=== PATIENT | female | born 1950 | race Caucasian/White ===

== ENCOUNTER 2017-10-28 10:09 | Emergency (ER) | payer MEDICARE, OTHER ==
[2017-10-28] MEDS ORDERED: Sodium Chloride 0.9% 10 ML Syringe FLUSH PRN (10:37)
[2017-10-28] MEDS ORDERED: Sodium Chloride 0.9% 1,000 ML IV ONE (10:37)
--- NOTE | 2017-10-28 10:55 | EDM.PDOC ---
ED HPI GENERAL MEDICAL PROBLEM - General Chief Complaint: Neuro Symptoms/Deficits Stated Complaint: DIFFICULTY SPEAKING Time Seen by Provider: 10/28/17 10:12 Source of Information: Reports: Family, RN, RN Notes Reviewed History Limitations: Reports: Altered Mental Status - History of Present Illness INITIAL COMMENTS - FREE TEXT/NARRATIVE: Patient is brought to the ED at [facility] via POV by son for expressive aphasia. Patient was last known well 2 days ago. Patient was out to her son's farm last Saturday to visit. The son did not see his mother until this AM when he checked on her. Patient has a known lung CA Primary with mets to the liver. She was started on Xarelto last August for Left DVT. She was transitioned to Coumadin last Saturday due to cost. Patient has been given a poor prognosis for her CA recovery per Oncology. - Related Data Allergies Allergy/AdvReac Type Severity Reaction Status Date / Time ciprofloxacin Allergy Edema Verified 10/28/17 11:40 quinine Allergy Dizziness Verified 10/28/17 11:40 codeine AdvReac Nausea and Verified 10/28/17 11:40 Vomiting Sulfa (Sulfonamide AdvReac Nausea Verified 10/28/17 11:40 Antibiotics) Home Meds: Home Meds Ascorbic Acid [Vitamin C] 1,000 mg PO DAILY 03/16/15 [History] Calcium Carbonate/Vitamin D3 [Calcium 600 + Vit D 200] 3 tab PO BEDTIME [History] Cholecalciferol (Vitamin D3) [Vitamin D3] 1,000 units PO DAILY 03/16/15 [History ] Multivitamin with Minerals [Multiple Vitamin] 1 tab PO DAILY 03/16/15 [History] Vitamin E 400 units PO DAILY 03/16/15 [History] Rivaroxaban [Xarelto] 15 - 20 mg PO ASDIRECTED 09/10/17 [History] Acetaminophen 2 tab PO TID 10/28/17 [History] Warfarin [Coumadin] 2.5 mg PO DAILY 10/28/17 [History] oxyCODONE 5 mg PO Q4HR PRN 10/28/17 [History] Past Medical History HEENT History: Reports: Cataract Cardiovascular History: Reports: High Cholesterol, PVD Respiratory History: Reports: Other (See Below) Other Respiratory History: emphysema Gastrointestinal History: Reports: Colon Polyp Musculoskeletal History: Reports: Other (See Below) Other Musculoskeletal History: BONE DENSITY AND STRUCTURE DISORDER, shoulder pain Oncologic (Cancer) History: Reports: Non-Hodgkin's Lymphoma - Past Surgical History HEENT Surgical History: Reports: Adenoidectomy, Tonsillectomy Female Surgical History: Reports: Hysterectomy, Tubal Ligation Musculoskeletal Surgical History: Reports: Arthroscopic Knee, Arthroscopic Procedure, Shoulder Surgery Social & Family History - Tobacco Use Smoking Status *Q: Current Every Day Smoker Years of Tobacco use: 45 Packs/Tins Daily: 0.5 - Recreational Drug Use Recreational Drug Use: No ED ROS GENERAL - Review of Systems Review Of Systems: See Below Constitutional: Reports: Weakness. Denies: Fever, Chills HEENT: Reports: No Symptoms Respiratory: Denies: Shortness of Breath, Cough Cardiovascular: Denies: Chest Pain, Palpitations GI/Abdominal: Reports: Nausea. Denies: Abdominal Pain, Vomiting Musculoskeletal: Reports: No Symptoms Skin: Reports: No Symptoms Neurological: Reports: Confusion, Trouble Speaking, Weakness, Change in Speech. Denies: Pre-Existing Deficit ED EXAM, NEURO - Physical Exam Exam: See Below Exam Limited By: Altered Mental Status General Appearance: Alert, No Apparent Distress, Cachetic Eye Exam: Bilateral Eye: Normal Inspection, PERRL Ears: Normal External Exam, Normal Canal, Normal TMs Head Exam: Atraumatic, Normocephalic Neck: Supple Respiratory/Chest: No Respiratory Distress, Lungs Clear, Normal Breath Sounds Cardiovascular: Normal Peripheral Pulses, Regular Rate, Rhythm GI/Abdominal: Normal Bowel Sounds, Soft, Non-Tender Neurological: Withdraws to Pain, Abnormal Finger to Nose, Other (expressive aphasia; right facial droop; weak right hand grasp) Skin Exam: Warm, Dry, Intact, Normal Color, No Rash EKG INTERPRETATION EKG Date: 10/28/17 Time: 10:42 Rhythm: NSR Rate (Beats/Min): 81 [place]: Normal P-Wave: Present QRS: Normal ST-T: Normal QT: Normal AK/PQ Interval: 0.18 Comparison: No Change EKG Interpretation Comments: 1. Sinus Rhythm with occasional PVC 2. Prolonged QT interval *Q Meaningful Use (ADM) - VTE *Q VTE Mechanical Contraindications *Q: At Risk for Falls Course - Vital Signs Last Recorded V/S: Last Vital Signs Temp 36.6 C 10/28/17 10:20 Pulse 77 10/28/17 11:43 Resp 16 10/28/17 11:43 BP 162/81 H 10/28/17 11:43 Pulse Ox 91 L 10/28/17 11:43 - Orders/Labs/Meds Orders: Active Orders 24 hr Category Date Time Status EKG 12 Lead [EKG Documentation Completion] [RC] STAT Care 10/28/17 10:36 Active Head wo Cont [CT] Stat Exams 10/28/17 10:34 Taken Sodium Chloride 0.9% [Saline Flush] Med 10/28/17 10:37 Active 10 ml FLUSH ASDIRECTED PRN Peripheral IV Insertion Adult [OM.PC] Routine Oth 10/28/17 10:37 Ordered Medication Orders Sodium Chloride (Saline Flush) 10 ml FLUSH ASDIRECTED PRN PRN Reason: Keep Vein Open Last Admin: 10/28/17 11:26 Dose: 10 ml Labs: Laboratory Tests 10/28/17 10/28/17 10/28/17 Range/Units 10:35 10:35 10:35 WBC 7.6 (4.0-10.0) x10^3/uL RBC 4.40 (4.00-5.50) x10^6/uL Hgb 12.3 (12.0-16.0) g/dL Hct 36.7 (33.0-47.0) % MCV 83.4 (78.0-93.0) fL MCH 28.0 (26.0-32.0) pg MCHC 33.5 (32.0-36.0) g/dL RDW Coeff of Thiago 14.6 (10.0-15.0) % Plt Count 261 (130-400) x10^3/uL Neut % (Auto) 73.8 (50.0-80.0) % Lymph % (Auto) 18.4 L (25.0-50.0) % [place] % (Auto) 6.5 (2.0-11.0) % Eos % (Auto) 0.9 (0.0-4.0) % Baso % (Auto) 0.4 (0.2-1.2) % PT 11.6 H (9.6-11.4) SEC INR 1.1 L (2.0-3.5) Sodium 134 L (136-145) mmol/L Potassium 3.6 (3.5-5.1) mmol/L Chloride 99 (98-107) mmol/L Carbon Dioxide 28 (21-32) mmol/L Anion Gap 10.6 (10-20) mmol/L BUN 17 (7-18) mg/dL Creatinine 1.0 (0.55-1.02) mg/dL Est Cr Clr Drug Dosing 46.76 mL/min Estimated GFR (MDRD) 55 Glucose 113 H (74-106) mg/dL Calcium 9.5 (8.5-10.1) mg/dL Corrected Calcium 10.06 (8.5-10.1) mg/dL Magnesium (1.8-2.4) mg/dL Total Bilirubin 0.4 (0.2-1.0) mg/dL AST 24 (15-37) U/L ALT 26 (14-59) U/L Alkaline Phosphatase 143 H (46-116) U/L Creatine Kinase 316 H* (26-192) U/L Troponin I < 0.017 (<=0.056) ng/mL Total Protein 7.8 (6.4-8.2) g/dL Albumin 3.3 L (3.4-5.0) g/dL Globulin 4.5 Albumin/Globulin Ratio 0.73 09/17/18 Range/Units 10:35 WBC (4.0-10.0) x10^3/uL RBC (4.00-5.50) x10^6/uL Hgb (12.0-16.0) g/dL Hct (33.0-47.0) % MCV (78.0-93.0) fL MCH (26.0-32.0) pg MCHC (32.0-36.0) g/dL RDW Coeff of [place]iago (10.0-15.0) % Plt Count (130-400) x10^3/uL Neut % (Auto) (50.0-80.0) % Lymph % (Auto) (25.0-50.0) % [place] % (Auto) (2.0-11.0) % Eos % (Auto) (0.0-4.0) % Baso % (Auto) (0.2-1.2) % PT (9.6-11.4) SEC INR (2.0-3.5) Sodium (136-145) mmol/L Potassium (3.5-5.1) mmol/L Chloride (98-107) mmol/L Carbon Dioxide (21-32) mmol/L Anion Gap (10-20) mmol/L BUN (7-18) mg/dL Creatinine (0.55-1.02) mg/dL Est Cr Clr Drug Dosing mL/min Estimated GFR (MDRD) Glucose (74-106) mg/dL Calcium (8.5-10.1) mg/dL Corrected Calcium (8.5-10.1) mg/dL Magnesium 1.9 (1.8-2.4) mg/dL Total Bilirubin (0.2-1.0) mg/dL AST (15-37) U/L ALT (14-59) U/L Alkaline Phosphatase (46-116) U/L Creatine Kinase (26-192) U/L Troponin I (<=0.056) ng/mL Total Protein (6.4-8.2) g/dL Albumin (3.4-5.0) g/dL Globulin Albumin/Globulin Ratio Meds: Medications Generic Name Dose Route Start Last Admin Trade Name Freq PRN Reason Stop Dose Admin Sodium Chloride 10 ml 10/28/17 10:37 10/28/17 11:26 Saline Flush FLUSH 10 ml ASDIRECTED PRN Administration Keep Vein Open Discontinued Medications Generic Name Dose Route Start Last Admin Trade Name Freq PRN Reason Stop Dose Admin Sodium Chloride 1,000 mls @ 999 mls/hr 10/28/17 10:37 10/28/17 11:26 Normal Saline IV 10/28/17 11:37 999 mls/hr ONETIME ONE Administration - Radiology Interpretation Free Text/Narrative:: CT Head: Hypodensity involving the left opercular region and lentiform nucleus on the left See scanned report in EMR Departure - Departure Time of Disposition: 11:58 Disposition: DC/Tfer to Acute Hospital 02 Condition: Poor Clinical Impression: Expressive aphasia, Metastasis to liver Primary lung cancer with metastasis from lung to other site Qualifiers: Laterality: unspecified laterality Qualified Code(s): C34.90 - Malignant neoplasm of unspecified part of unspecified bronchus or lung - Discharge Information *PRESCRIPTION DRUG MONITORING PROGRAM REVIEWED*: Not Applicable *COPY OF PRESCRIPTION DRUG MONITORING REPORT IN PATIENT RYAN: Not Applicable Forms: Interfacility Transfer EMTALA ED Communication - ED Communication Date/Time Date: 10/28/17 Time Called: 11:33 - Discussed Case With (1) Discussed Case With (1): Admitting Provider (Dr. Finney, Neurology) - Conversation Summary Admitting Provider Agreed to Patient's Admission: Yes Patient Aware of Amendments fo Care Plan: Yes - Problem List Review Problem List Initiated/Reviewed/Updated: Yes - My Orders Last 24 Hours: My Active Orders 10/28/17 10:34 Head wo Cont [CT] Stat 10/28/17 10:36 EKG 12 Lead [EKG Documentation Completion] [RC] STAT 10/28/17 10:37 Sodium Chloride 0.9% [Saline Flush] 10 ml FLUSH ASDIRECTED PRN Peripheral IV Insertion Adult [OM.PC] Routine - Assessment/Plan Last 24 Hours: My Active Orders 10/28/17 10:34 Head wo Cont [CT] Stat 10/28/17 10:36 EKG 12 Lead [EKG Documentation Completion] [RC] STAT 10/28/17 10:37 Sodium Chloride 0.9% [Saline Flush] 10 ml FLUSH ASDIRECTED PRN Peripheral IV Insertion Adult [OM.PC] Routine Assessment:: CVA Expressive Aphasia Lung CA with liver mets Plan: Case discussed with Dr. Finney, Neurology. Patient accepted in transfer. Patient will be sent to [facility] via ALS. Patient and son agree with transfer.
[2017-10-28 11:11] LABS: CHLORIDE,CL 99 mmol/L (98-107); SODIUM,NA 134 mmol/L (136-145)
[2017-10-28 11:12] LABS: ANION GAP 10.6 mmol/L (10-20)
[2017-10-28 13:10] VITALS: BP 150/90
== END 2017-10-28 14:15 | disposition short-term general hospital (02) ==
LOC: VM.ED 10:09
DX: I63.9 Cerebral infarction, unspecified (principal); C34.90 Malignant neoplasm of unspecified part of unspecified bronchus or lung; C78.7 Secondary malignant neoplasm of liver and intrahepatic bile duct; F17.210 Nicotine dependence, cigarettes, uncomplicated; E78.00 Pure hypercholesterolemia, unspecified; Z88.2 Allergy status to sulfonamides; Z88.8 Allergy status to other drugs, medicaments and biological substances; Z79.899 Other long term (current) drug therapy; Z79.01 Long term (current) use of anticoagulants
CPT/HCPCS: 70450; 80053; 82550; 83735; 84484; 85025; 85610; 93005; 96365; 96366; 99285; J7030; J7050